=== PATIENT | male | born 1955 | race Caucasian/White ===

== ENCOUNTER → 2019-06-24 11:00 | Outpatient (CLI) | payer OTHER, SELFPAY ==
--- NOTE | 2019-06-24 11:08 | XR_ITS ---
PROCEDURE: XR CHEST 2V CLINICAL HISTORY: CHRONIC COUGH Chronic cough with shortness of breath COMPARISON: No exams were available for comparison FINDINGS: The cardiomediastinal silhouette and pulmonary vascularity are within normal limits. The lungs are clear without infiltrates, suspicious nodules, or pleural effusions. Status post left shoulder surgery with anchor screws within the humeral head. There is a faint lucency overlying the mid aspect of the scapula on the right. This is well-circumscribed. There are degenerative changes in the thoracic spine IMPRESSION: No acute cardiac or pulmonary findings. Well-circumscribed 7 mm lucency in the mid aspect of the scapula on the right etiology indeterminate. Scapula films may be of further value if clinically warranted Dictated by: Omer Vila MD 06/24/2019 17:44 Electronically signed by Omer Vila MD in [place] 06/24/2019 17:44
== END ==
PROVIDERS: Visit Provider Orthopaedic Surgery
DX: R05 Cough (principal)
CPT/HCPCS: 71046; 94060; 94729

== ENCOUNTER → 2021-10-17 12:55 | Outpatient (CLI) | payer OTHER, SELFPAY ==
[2021-10-17 13:30] VITALS: PULSE 74; PULSE 78
--- NOTE | 2021-10-17 14:31 | XR_ITS ---
FINAL REPORT TECHNIQUE: Chest PA & Lateral CLINICAL HISTORY: CHRONIC COUGH, 20 plus years, non-smoker, no chest surgeries. FINDINGS: 2 views of the chest were performed. The heart size is at the upper limits of normal. The mediastinum is within normal limits. There is no acute cardiopulmonary process. There are no pleural effusions. There is no pneumothorax. The bony thorax appears intact. IMPRESSION: No acute cardiopulmonary process. Reviewed, Interpreted and Dictated by John Ignacio MD Transcribed by Tigist White Authenticated by John Ignacio MD on 10/17/2021 04:07:24 PM [facility]
== END ==
PROVIDERS: PCP Nurse Practitioner; Visit Provider Chiropractor
DX: R05.3 Chronic cough (principal)
CPT/HCPCS: 71046; 94060; 94618; 94640; 94727; 94729